=== PATIENT | female | born 1970 | race Caucasian/White ===

== ENCOUNTER 2020-10-16 11:31 | Emergency (ER) | payer OTHER ==
[~2020-10-16] VITALS: Ht 167.6 cm; Wt 67.1 kg
[~2020-10-16 11:31] MED LIST: ADDERALL 20 MG20 M1; ANTIBIOTIC; BACTRIM DS TAB1 EACH PO; CARISOPRODOL; COUMADIN 5 MG TA5 M1 PO; DEMEROL50 MG; IBUPROFEN 800800 M1 PO; LORTAB 5 MG/5001 TA1 PO; LOVENOX SC; PHENERGAN 25 MG25 M1 PO
[2020-10-16] MEDS ORDERED: HYDROCODON-ACE1 EAC7 PO (12:49)
[2020-10-16 13:24] VITALS: BP 135/72
[2020-10-16] MEDS ORDERED: IBUPROFEN 800800 MG PO (13:24)
== END 2020-10-16 13:26 | disposition home or self-care (01) ==
LOC: M.ERS 11:31
DX: S80.12XA Contusion of left lower leg, initial encounter (principal); Z90.710 Acquired absence of both cervix and uterus; V29.59XA Motorcycle passenger injured in collision with other motor vehicles in traffic accident, initial encounter; Y93.89 Activity, other specified; Y92.89 Other specified places as the place of occurrence of the external cause; Y99.8 Other external cause status